=== PATIENT | female | born 1975 | race Caucasian/White ===

== ENCOUNTER 2017-07-18 11:00 | Emergency (ER) | payer OTHER ==
[~2017-07-18] VITALS: Ht 157.5 cm; Wt 64.0 kg
== END 2017-07-18 11:20 | disposition home or self-care (01) ==
LOC: ED 11:00
PROC: 0HQGXZZ Repair Left Hand Skin, External Approach (ICD-10-PCS; principal; 2017-07-18)
DX: S61.211A Laceration without foreign body of left index finger without damage to nail, initial encounter (principal); Z98.51 Tubal ligation status; Z90.49 Acquired absence of other specified parts of digestive tract; Z88.1 Allergy status to other antibiotic agents; W26.8XXA Contact with other sharp object(s), not elsewhere classified, initial encounter
CPT/HCPCS: 12001; 99282

== ENCOUNTER 2020-09-13 07:20 | Emergency (ER) | payer BC ==
[~2020-09-13] VITALS: Ht 157.5 cm; Wt 76.2 kg
[~2020-09-13 07:20] MED LIST: ALLER-TEC10 MG; CALCIUM 500 +1 EAC2; FLUOXETINE HCL20 MG PO; GLUCOSAMINE-CH1 EA21 PO; IRON18 MG PO; VITAMIN B COMP1 EACH; WOMEN'S DAILY1 EACH
[2020-09-13] MEDS ORDERED: BALSALAZIDE DI750 MG PO (07:43)
[2020-09-13] MEDS ORDERED: OMEPRAZOLE40 MG PO (07:43)
[2020-09-13] MEDS ORDERED: MECLIZINE HCL25 MG PO (11:11)
== END 2020-09-13 11:36 | disposition home or self-care (01) ==
LOC: ED 07:20
DX: R42 Dizziness and giddiness (principal); Z88.8 Allergy status to other drugs, medicaments and biological substances; Z88.1 Allergy status to other antibiotic agents; Z79.899 Other long term (current) drug therapy
CPT/HCPCS: 70450; 80053; 81001; 83690; 83735; 84703; 85025; 96374; 96375; 99284-25; C9803; J1100; J2405; J3360; J7030; U0003

== ENCOUNTER 2022-02-08 16:03 | Emergency (ER) | payer OTHER ==
[~2022-02-08] VITALS: Ht 157.5 cm; Wt 76.2 kg
[~2022-02-08 16:03] MED LIST changes: +BALSALAZIDE DI750 MG PO; +MECLIZINE HCL25 MG PO; +OMEPRAZOLE40 MG PO
[2022-02-08] MEDS ORDERED: HYDROXYCHLOROQ200 MG PO (16:26)
[2022-02-08] MEDS ORDERED: METHIMAZOLE5 MG PO (16:27)
[2022-02-08] MEDS ORDERED: AMLODIPINE BES2.5 MG PO (16:27)
[2022-02-08] MEDS ORDERED: CEPHALEXIN500 M1 PO (19:05)
== END 2022-02-08 19:15 | disposition home or self-care (01) ==
LOC: ED 16:03
DX: N12 Tubulo-interstitial nephritis, not specified as acute or chronic (principal); Z88.8 Allergy status to other drugs, medicaments and biological substances; Z88.1 Allergy status to other antibiotic agents; Z79.899 Other long term (current) drug therapy
CPT/HCPCS: 36415; 76775; 80053; 81001; 83690; 85025; 96361; 96365; 96375; 99284-25; J0696; J1885; J7030